=== PATIENT | female | born 1975 | race Native Hawaiian/Other Pacific Islander ===

== ENCOUNTER 2022-03-12 09:52 | Outpatient (CLI) | payer BC | END 2022-03-12 19:44 | disposition home or self-care (01) | LOC: RAD 09:52 | PROVIDERS: ATTEND Registered Nurse | DX: R60.9 Edema, unspecified (principal) ==

== ENCOUNTER 2022-03-31 08:41 | Outpatient (CLI) | payer BC | END 2022-03-31 19:03 | disposition home or self-care (01) | LOC: CT 08:41 | PROVIDERS: ATTEND Registered Nurse | DX: R91.8 Other nonspecific abnormal finding of lung field (principal) | CPT/HCPCS: 36415; 82565; 84520; Q9963 ==

== ENCOUNTER 2022-08-26 15:20 | Outpatient (CLI) | payer BC | END 2022-08-26 19:00 | disposition home or self-care (01) | LOC: RAD 15:20 | PROVIDERS: ATTEND Registered Nurse | DX: R93.89 Abnormal findings on diagnostic imaging of other specified body structures (principal) ==

== ENCOUNTER 2022-11-09 08:51 | Outpatient (CLI) | payer BC | END 2022-11-09 19:12 | disposition home or self-care (01) | LOC: MAMMO 08:51 | PROVIDERS: ATTEND Physician Assistant | DX: Z12.31 Encounter for screening mammogram for malignant neoplasm of breast (principal) ==